=== PATIENT | female | born 1945 | race Caucasian/White ===

== ENCOUNTER 2017-04-01 02:53 | Emergency (ER) | payer MEDICARE ==
[2017-04-01 03:25] LABS: BASOPHILS % (AUTO) 0.5 % (0.0-5.0); EOSINOPHILS % (AUTO) 2.5 % (0.0-8.0); HEMATOCRIT 40.5 % (36-48); LYMPHOCYTES % (AUTO) 47.8 % (21.0-51.0); MEAN CORPUSCULAR HEMOGLOBIN 28.9 pg (27.0-33.0); MEAN CORPUSCULAR HGB CONC 33.3 g/dL (32.0-36.0); MEAN CORPUSCULAR VOLUME 86.6 fL (79-99); MONOCYTES % (AUTO) 6.7 % (3.0-13.0); NEUTROPHILS % (AUTO) 42.5 % (40.0-77.0); NUCLEATED RED BLOOD CELLS 0.1 % (0.0-0.19); PLATELET COUNT (AUTO) 195 K/uL (130-400); RED BLOOD CELL COUNT(AUTO) 4.68 MIL/uL (4.00-5.50); RED CELL DISTRIBUTION WIDTH 13.2 % (11.0-15.5); WHITE BLOOD COUNT (AUTO) 8.7 K/uL (4.8-10.8)
[2017-04-01 03:33] LABS: CARBON DIOXIDE 27 mmol/L (21-32); CHLORIDE 105 mmol/L (101-111); GLOMERULAR FILTR. RATE CALC 58 mL/min (>60); GLUCOSE,RANDOM 81 mg/dL (70-105); INR 0.99 (0.85-1.15); PARTIAL THROMBOPLASTIN TIME 24.8 SEC (26.3-35.5); POTASSIUM 3.3 mmol/L (3.5-5.1); PROTHROMBIN TIME 10.4 SEC (9.6-11.6); SODIUM SERUM 144 mmol/L (136-145); UREA NITROGEN, BLOOD 15 mg/dL (7-18)
[2017-04-01] MEDS ORDERED: ASPIRIN 325 MG TABLET ONE (03:35)
[2017-04-01] MEDS ORDERED: NITROGLYCERIN 1GM/1 INCH PACKET TD ONE (03:35)
[2017-04-01 03:47] LABS: ALANINE AMINOTRANSFERASE 40 U/L (12-78); ASPARTATE AMINOTRANSFERASE 23 U/L (10-37); BILIRUBIN,TOTAL 0.4 mg/dL (0.2-1.0); CREATINE KINASE MB < 0.5 ng/mL (0.5-3.6); CREATINE KINASE, TOTAL 40 U/L (21-232); MYOGLOBIN 25 ng/mL (10-92); TOTAL PROTEIN, SERUM 7.4 g/dL (6.0-8.3)
[2017-04-01] MEDS ORDERED: POTASSIUM BICARB/CIT AC 25 MEQ TABLET.EFF ONE (04:22)
[2017-04-01 04:30] LABS: APPEARANCE,URINE Clear (CLEAR); BILIRUBIN,URINE Negative (NEGATIVE); COLOR,URINE Yellow (YELLOW); GLUCOSE, URINE (UA) Negative (NEGATIVE); KETONES,URINE Negative (NEGATIVE); LEUKOCYTE ESTERASE ,URINE Small (NEGATIVE); NITRATE,URINE Negative (NEGATIVE); OCCULT BLOOD,URINE Negative (NEGATIVE); PROTEIN,URINE Negative (NEGATIVE); UROBILINOGEN,URINE 0.2 mg/dL (0.2-1.0)
[2017-04-01 04:44] LABS: BACTERIA,URINE None Seen /HPF (None Seen); RBC,URINE 0-1 /HPF (0-1); SQUAMOUS EPITHELIAL CELL,UR Rare /LPF (0-2); WBC,URINE None Seen /HPF (0-1)
[2017-04-01 13:39] LABS: AMPHET/METH SCREEN,URINE NEGATIVE (NEGATIVE); BARBITURATE SCREEN, URINE NEGATIVE (NEGATIVE); BENZODIAZEPINES SCREEN,URINE NEGATIVE (NEGATIVE); CANNABINOID SCREEN,URINE NEGATIVE (NEGATIVE); COCAINE SCREEN,URINE NEGATIVE (NEGATIVE); OPIATE SCREEN,URINE NEGATIVE (NEGATIVE); PHENCYCLIDINE SCREEN,URINE NEGATIVE (NEGATIVE)
== END 2017-04-01 08:10 | disposition home or self-care (01) ==
LOC: EDH 02:53
DX: R00.2 Palpitations (principal); R07.89 Other chest pain; Z79.84 Long term (current) use of oral hypoglycemic drugs; Z79.899 Other long term (current) drug therapy
CPT/HCPCS: 36415; 80053; 80305; 81001; 82550; 82553; 83874; 84484; 85025; 85610; 85730; 93005

== ENCOUNTER 2019-04-02 16:17 | Emergency (ER) | payer MEDICARE | END 2019-04-02 18:54 | disposition home or self-care (01) | LOC: EDH 16:17 | DX: S20.212A Contusion of left front wall of thorax, initial encounter (principal); E11.9 Type 2 diabetes mellitus without complications; I10 Essential (primary) hypertension; Z90.49 Acquired absence of other specified parts of digestive tract; Z79.899 Other long term (current) drug therapy; W18.39XA Other fall on same level, initial encounter; Y93.01 Activity, walking, marching and hiking; Y92.89 Other specified places as the place of occurrence of the external cause; Y99.8 Other external cause status | CPT/HCPCS: 71101 ==

== ENCOUNTER 2019-08-08 07:28 | Day surgery (SDC) | payer MEDICARE ==
[2019-08-02 15:52] LABS: BASOPHILS % (AUTO) 0.7 % (0.0-5.0); EOSINOPHILS % (AUTO) 2.1 % (0.0-8.0); HEMATOCRIT 37.6 % (36-48); LYMPHOCYTES % (AUTO) 38.7 % (21.0-51.0); MEAN CORPUSCULAR HEMOGLOBIN 28.5 pg (27.0-33.0); MEAN CORPUSCULAR HGB CONC 31.6 g/dL (32.0-36.0); MONOCYTES % (AUTO) 5.9 % (3.0-13.0); NEUTROPHILS % (AUTO) 52.2 % (40.0-77.0); PLATELET COUNT (AUTO) 225 K/uL (130-400); RED BLOOD CELL COUNT(AUTO) 4.18 MIL/uL (4.00-5.50); RED CELL DISTRIBUTION WIDTH 13.5 % (11.0-15.5); WHITE BLOOD COUNT (AUTO) 7.6 K/uL (4.8-10.8)
[2019-08-02 16:01] LABS: CREATININE 1.3 mg/dL (0.5-1.5)
--- NOTE | 2019-08-07 10:17 | NUR ---
EKG INFORMED DR. URIAS OF ABNORMAL EKG. NO ORDERS RECEIVED. PROCEED WITH PLANNED PROCEDURE.
[2019-08-07 10:20] VITALS: BP 167/67
[2019-08-08] VITALS (32 sets, daily range): BP systolic 128–216; BP diastolic 53–91
[~2019-08-08] VITALS: Ht 160 cm; Wt 65.4 kg
[~2019-08-08 07:28] MED LIST: ATOR10TA69 PO; CEFAZOLIN SODIUM 1 GM VIAL IVP SCH; GLIM4TAB36 PO; LACTATED RINGERS 1000ML 1,000 ML IV SCH; LEVO75TA10 PO; LISI10TA7 PO; METF-446 PO
[2019-08-08] MEDS ORDERED: SODIUM CHLORIDE 0.9% 1000ML 1,000 ML IV ONE (08:44)
[2019-08-08] MEDS ORDERED: PROPOFOL 10 MG/ML 20ML VIAL IV ONE (10:27)
[2019-08-08] MEDS ORDERED: ROCURONIUM 10MG/1ML SYR 10 MG/ML ML ONE (10:27)
[2019-08-08] MEDS ORDERED: SUCCINYLCHOLINE 200MG/10ML SYR ONE (10:27)
[2019-08-08] MEDS ORDERED: LIDOCAINE PF 2% 5ML ABBOJECT ONE (10:27)
[2019-08-08] MEDS ORDERED: FENTANYL CITRATE PF 50 MCG/1 ML 5ML AMP IV ONE (10:27)
[2019-08-08] MEDS ORDERED: GLYCOPYRROLATE 1 MG/5 ML SYRINGE ONE (11:46)
[2019-08-08] MEDS ORDERED: NEOSTIGMINE 5MG/5ML SYR IV ONE (11:46)
[2019-08-08] MEDS ORDERED: LABETALOL 20 MG/4 ML DISP.SYRIN IV ONE (12:11)
[2019-08-08] MEDS ORDERED: HYDRALAZINE HCL 20 MG/ML VIAL ONE (12:44)
[2019-08-08] MEDS ORDERED: ONDANSETRON HCL 4 MG/2 ML VIAL ONE (14:37)
[2019-08-08] MEDS ORDERED: HYDRALAZINE HCL 20 MG/ML VIAL IV PRN (15:15)
--- NOTE | 2019-08-08 15:40 | NUR ---
PATIENT ARRIVED TO DAY PATIENT VIA STRETCHER BY TAYLOR HORTA. PATIENT AAOX3, RESPIRATIONS UNLABORED, VITAL SIGNS STABLE, DENIES ANY PAIN AT THIS TIME. DRESSING TO LEFT SHOULDER IS DRY/INTACT, NO BLEEDING/DRAINAGE NOTED. ARM IN SLING.
[2019-08-08] MEDS ORDERED: HYDROCODONE/ACETAMINOPHEN 10/325 MG TAB PO PRN (15:45)
[2019-08-08] MEDS ORDERED: INSULIN HUMULIN R 100 UNIT/ML 3ML SQ SCH (16:30)
[2019-08-08] MEDS ORDERED: METFORMIN HCL 500 MG TABLET PO SCH (17:00)
--- NOTE | 2019-08-08 17:00 | NUR ---
DISCHARGE INSTRUCTIONS PROVIDED TO PATIENT'S SPOUSE VIA TELEPHONE (JOSE BONILLA). FOLLOW UP APPOINTMENT PROVIDED AND INCISION CARE INSTRUCTIONS PROVIDED WELL. ALL QUESTIONS/CONCERNS ADDRESSED.
--- NOTE | 2019-08-08 17:20 | NUR ---
PATIENT DISCHARGED FROM FACILITY VIA WHEELCHAIR BY NURSE. PATIENT ASSISTED INTO PRIVATE VEHICLE DRIVEN BY SPOUSE.
[2019-08-08] MEDS ORDERED: LISINOPRIL 10 MG TABLET PO SCH (21:00)
[2019-08-08] MEDS ORDERED: LEVOTHYROXINE 75 MCG TABLET PO SCH (21:00)
[2019-08-09] MEDS ORDERED: ATORVASTATIN CALCIUM 10 MG TABLET PO SCH (09:00)
== END 2019-08-08 17:20 | disposition home or self-care (01) ==
LOC: DAH 07:28
PROVIDERS: ATTEND Orthopaedic Surgery
DX: S46.012A Strain of muscle(s) and tendon(s) of the rotator cuff of left shoulder, initial encounter (principal); M25.512 Pain in left shoulder; M25.812 Other specified joint disorders, left shoulder; M25.612 Stiffness of left shoulder, not elsewhere classified; I10 Essential (primary) hypertension; E03.9 Hypothyroidism, unspecified; E11.9 Type 2 diabetes mellitus without complications; E78.5 Hyperlipidemia, unspecified; X58.XXXA Exposure to other specified factors, initial encounter; Y93.89 Activity, other specified; Y92.89 Other specified places as the place of occurrence of the external cause; Y99.8 Other external cause status; Z79.899 Other long term (current) drug therapy; Z90.49 Acquired absence of other specified parts of digestive tract; Z98.890 Other specified postprocedural states; Z79.84 Long term (current) use of oral hypoglycemic drugs; Z72.89 Other problems related to lifestyle; Z87.891 Personal history of nicotine dependence; Z82.49 Family history of ischemic heart disease and other diseases of the circulatory system
CPT/HCPCS: 23410; 36415; 64415; 76942; 80048; 82948 ×2; 85025; 93005 ×2; A4213; A4215; A4221; A4222; A4223; A4450; A4452; A4600; A4649 ×3; A5120; A6207; C1713 ×2; J0330; J0360; J0690; J2001; J2405; J2704; J2710; J3010; J3490; J7030; J7120

== ENCOUNTER → 2022-01-29 | Outpatient (CLI) | payer MEDICARE ==
[~2022-01-29] MED LIST changes: -CEFAZOLIN SODIUM 1 GM VIAL IVP SCH; -LACTATED RINGERS 1000ML 1,000 ML IV SCH; +LISI10TA24 PO; -LISI10TA7 PO
== END | disposition home or self-care (01) ==
LOC: RAH 12:42
PROVIDERS: ATTEND Physician Assistant Medical
DX: Z12.31 Encounter for screening mammogram for malignant neoplasm of breast (principal)
CPT/HCPCS: 77067

== ENCOUNTER → 2025-01-26 | Outpatient (CLI) | payer MEDICARE ==
[2025-01-26 14:41] LABS: CREATININE 1.4 mg/dL (0.5-1.0); GLOMERULAR FILTR. RATE CALC 39.0 mL/min (>90); UREA NITROGEN, BLOOD 17.0 mg/dL (7-18)
--- NOTE | 2025-01-27 07:27 | HMCIMG ---
EXAM: CR Cervical spine, 5 View. CLINICAL HISTORY: CERVICALGIA COMPARISON: None provided. FINDINGS: BONES: No acute fracture or aggressive appearing osseous lesion. Orthopedic hardwares in position from C4 to C6 level. DISCS/DEGENERATIVE CHANGES: Spondylotic changes. The visualized disc spaces are preserved. Posterior vertebral body alignment is within normal limits. SOFT TISSUES: No prevertebral soft tissue swelling. The visualized lung apices are clear. IMPRESSION: No acute cervical spine abnormality. Orthopedic hardwares in position from C4 to C6 level. Spondylosis. /[place]
--- NOTE | 2025-01-27 07:27 | HMCIMG ---
EXAM: CR Lumbar Spine, 4 View. CLINICAL HISTORY: VERTEBROGENIC LOW BACK PAIN COMPARISON: None provided. FINDINGS: BONES: No acute fracture or aggressive appearing osseous lesion. ALIGNMENT: Alignment is within normal limits including in flexion extension views. No significant scoliosis. DISCS / DEGENERATIVE CHANGES: The disc spaces are preserved. Mild spondylosis SOFT TISSUES: The soft tissues are unremarkable. IMPRESSION: No acute lumbar spine abnormality evident. Mild spondylosis /[place]
== END | disposition home or self-care (01) ==
LOC: RAH 14:08
PROVIDERS: ATTEND Neuromusculoskeletal Medicine & OMM
DX: M47.812 Spondylosis without myelopathy or radiculopathy, cervical region (principal); M47.816 Spondylosis without myelopathy or radiculopathy, lumbar region; M54.2 Cervicalgia; M54.51 Vertebrogenic low back pain; Z98.1 Arthrodesis status
CPT/HCPCS: 36415; 72050; 72114; 82565; 84520